=== PATIENT | male | born 1945 | race Caucasian/White ===

== ENCOUNTER → 2018-04-08 | Outpatient (CLI) | payer MEDICARE ==
[~2018-04-08] MED LIST: ASPI-496 PO; ATOR20TA9 PO; BUPROPRION PO; ESOM20CA PO; GADOBUTROL 10 MMOL/10 ML VIAL ONE; MULT-658 PO; STATIN MT
== END | disposition home or self-care (01) ==
LOC: RAD 11:35
PROVIDERS: ATTEND Family Medicine
DX: R19.06 Epigastric swelling, mass or lump (principal)
CPT/HCPCS: 74183; A9585

== ENCOUNTER 2018-12-09 13:21 | Emergency (ER) | payer MEDICARE ==
[~2018-12-09] VITALS: Ht 182.9 cm; Wt 98.1 kg
[~2018-12-09 13:21] MED LIST changes: +ATOR20TA37 PO; -ATOR20TA9 PO; -GADOBUTROL 10 MMOL/10 ML VIAL ONE
[2018-12-09 13:57] VITALS: BP 158/91
== END 2018-12-09 15:39 | disposition home or self-care (01) ==
LOC: ED 15:17
DX: G89.11 Acute pain due to trauma (principal); M25.552 Pain in left hip; I10 Essential (primary) hypertension
CPT/HCPCS: 99283

== ENCOUNTER 2020-12-12 16:50 | Emergency (ER) | payer MEDICARE ==
[~2020-12-12] VITALS: Ht 182.9 cm; Wt 96.0 kg
[~2020-12-12 16:50] MED LIST changes: +ATOR40TA78 PO; +DOCU100C33 PO; +LACT20SO13 PO; +LATA7.5D EACH EAR; +OMEP-110 PO; +SENN-190 PO
--- NOTE | 2020-12-12 18:22 | NUR ---
ALL RESULTS ARE BACK AT THIS TIME. CHART UP FOR RECHECK.
--- NOTE | 2020-12-12 18:34 | NUR ---
HAS BEEN AT BEDSIDE TO UPDATE PT ON POC. N/O FOR MRI
--- NOTE | 2020-12-12 18:55 | NUR ---
REPORT GIVEN TO QUAN BROWN. TRANSFER OF CARE COMPLETE.
--- NOTE | 2020-12-12 19:02 | NUR ---
REPORT FROM RENNY BROWN. PT RESTING WAITING FOR MRI. PT HAS NO NEEDS AT THIS TIME. CALL LIGHT IN REACH
--- NOTE | 2020-12-12 19:15 | NUR ---
Back from xray.
--- NOTE | 2020-12-12 20:56 | NUR ---
Waiting for re-eval update. Pt concerned with how he is going to ambulate home. Has been using crutches, may need wc.
--- NOTE | 2020-12-12 21:15 | NUR ---
EMT APPLIED KNEE IMMOBILIZER, WALKER WITH INSTRUCT. PT DC HOME WITH INSTRUCT, RETURNS DEMO, RX. PT VERBALIZES UNDERSTANDING OF ALL INSTRUCT AND F/U. TO RETURN TO ER IF WORSE OR CONERNS.
[2020-12-12 21:16] VITALS: BP 133/79
== END 2020-12-12 21:34 | disposition home or self-care (01) ==
LOC: ED 17:20
DX: S76.911A Strain of unspecified muscles, fascia and tendons at thigh level, right thigh, initial encounter (principal); M25.561 Pain in right knee; I10 Essential (primary) hypertension; K21.9 Gastro-esophageal reflux disease without esophagitis; E78.5 Hyperlipidemia, unspecified; W18.39XA Other fall on same level, initial encounter; Y93.89 Activity, other specified; Y92.89 Other specified places as the place of occurrence of the external cause; Y99.8 Other external cause status
CPT/HCPCS: 29505; 99284

== ENCOUNTER → 2020-12-18 | Outpatient (CLI) | payer MEDICARE | END | disposition home or self-care (01) | LOC: RAD 13:31 | PROVIDERS: ATTEND Family Medicine Sports Medicine | DX: M79.661 Pain in right lower leg (principal) ==